=== PATIENT | female | born 1930 | race Caucasian/White ===

== ENCOUNTER 2018-08-24 11:48 | Day surgery (SDC) | payer MEDICARE ==
[~2018-08-24 11:48] MED LIST: ALBU90OI INH; ASPI325 PO; CEPH500 PO; Cleocin HCl300 MG PO; DIAZ5 PO; FURO40 PO; LEVFLO500 PO; LISI5 PO; Lasix20 MG PO; METO100ER PO; POTCHL20ER PO; Simvastatin20 MG PO; WARF2 PO; WARF2.5 PO; ZESTRIL40 MG PO; Zithromax250 MG PO
== END 2018-08-24 22:56 | disposition home or self-care (01) ==
LOC: WOUND 11:48
DX: L97.821 Non-pressure chronic ulcer of other part of left lower leg limited to breakdown of skin (principal); L97.811 Non-pressure chronic ulcer of other part of right lower leg limited to breakdown of skin; I87.2 Venous insufficiency (chronic) (peripheral); I11.0 Hypertensive heart disease with heart failure; I50.9 Heart failure, unspecified; I48.91 Unspecified atrial fibrillation; J44.9 Chronic obstructive pulmonary disease, unspecified; E78.5 Hyperlipidemia, unspecified; Z86.73 Personal history of transient ischemic attack (TIA), and cerebral infarction without residual deficits; Z88.5 Allergy status to narcotic agent; Z87.891 Personal history of nicotine dependence
CPT/HCPCS: G0463

== ENCOUNTER 2018-08-31 10:45 | Day surgery (SDC) | payer MEDICARE, OTHER ==
[~2018-08-31 10:45] MED LIST changes: +METO50ER PO
== END 2018-08-31 22:53 | disposition home or self-care (01) ==
LOC: WOUND 10:45
DX: L97.821 Non-pressure chronic ulcer of other part of left lower leg limited to breakdown of skin (principal); L97.811 Non-pressure chronic ulcer of other part of right lower leg limited to breakdown of skin; I87.2 Venous insufficiency (chronic) (peripheral); I11.0 Hypertensive heart disease with heart failure; I50.9 Heart failure, unspecified; J44.9 Chronic obstructive pulmonary disease, unspecified
CPT/HCPCS: 36415; 85610; G0463

== ENCOUNTER 2018-09-07 13:38 | Day surgery (SDC) | payer MEDICARE | END 2018-09-07 23:11 | disposition home or self-care (01) | LOC: WOUND 13:38 | DX: L97.811 Non-pressure chronic ulcer of other part of right lower leg limited to breakdown of skin (principal); L97.821 Non-pressure chronic ulcer of other part of left lower leg limited to breakdown of skin; I87.2 Venous insufficiency (chronic) (peripheral); I11.0 Hypertensive heart disease with heart failure; I50.9 Heart failure, unspecified; I48.91 Unspecified atrial fibrillation; J44.9 Chronic obstructive pulmonary disease, unspecified; E78.5 Hyperlipidemia, unspecified; Z86.73 Personal history of transient ischemic attack (TIA), and cerebral infarction without residual deficits | CPT/HCPCS: G0463 ==

== ENCOUNTER 2018-09-16 13:32 | Emergency (ER) | payer MEDICARE ==
[~2018-09-16] VITALS: Ht 162.6 cm; Wt 83.9 kg
[2018-09-16 15:36] LABS: BASOPHILS ABSOLUTE AUTO 0.05 K/mm3 (0.00-0.23); BASOPHILS PERCENT AUTO 1 % (0-2); EOSINOPHILS ABSOLUTE AUTO 0.08 K/mm3 (0.00-0.68); EOSINOPHILS PERCENT AUTO 1 % (0-6); Hematocrit 46.2 % (33.0-51.0); Hemoglobin 14.5 g/dL (11.5-16.0); IMMATURE GRAN ABSOLUTE AUTO 0.02 K/mm3 (0.00-0.10); IMMATURE GRAN PERCENT AUTO 0 % (0-1); LYMPHOCYTES ABSOLUTE AUTO 1.97 K/mm3 (0.84-5.20); LYMPHOCYTES PERCENT AUTO 26 % (21-46); MONOCYTES PERCENT AUTO 9 % (4-13); Mean Corpuscular HGB Conc 31.4 g/dL (31.5-36.5); Mean Corpuscular Volume 96 fL (80-100); Mean Platelet Volume 10.6 fL (9.1-12.4); NEUTROPHILS PERCENT AUTO 64 % (41-73); Platelet Count 211 K/mm3 (150-400); RDW Coefficient Variation 14.1 % (11.7-14.2); RDW Standard Deviation 49.5 fL (35.1-46.3); Red Blood Cell Count 4.84 M/mm3 (3.80-5.20); White Blood Cell Count 7.72 K/mm3 (4.00-11.30)
[2018-09-16 16:00] LABS: Alanine Aminotransfer (ALT/SGP 17 U/L (12-78); Albumin, Blood 3.8 g/dL (3.4-5.0); Albumin/Globulin Ratio 0.9 (0.8-1.8); Alk Phos 158 U/L (50-136); Anion Gap 9 mmol/L (6-16); Aspartate Aminotrans (AST/SGOT 20 U/L (12-37); Bilirubin, Total 1.2 mg/dL (0.1-1.0); Blood Urea Nitrogen 23 mg/dL (8-24); Bun/Creatinine Ratio 17.3 (12.0-20.0); CO2, Blood 28 mmol/L (21-32); Calcium, Blood 7.8 mg/dL (8.5-10.1); Chloride, Blood 102 mmol/L (98-108); Creatinine, Blood 1.33 mg/dL (0.40-1.00); Globulin, Blood 4.2 g/dL (2.2-4.0); Glomerular Filtration Rate 40 (60-); Glucose, Blood 93 mg/dL (70-99); Potassium, Blood 3.9 mmol/L (3.5-5.5); Sodium, Blood 139 mmol/L (136-145); Troponin I <0.015 ng/mL (0.000-0.040)
[2018-09-16] MEDS ORDERED: Ultram50 MG PO (16:11)
== END 2018-09-16 16:45 | disposition home or self-care (01) ==
LOC: ER 13:32
PROVIDERS: Emergency Medicine
DX: R07.9 Chest pain, unspecified (principal); M54.9 Dorsalgia, unspecified; I11.0 Hypertensive heart disease with heart failure; I50.9 Heart failure, unspecified; I48.91 Unspecified atrial fibrillation; Z86.73 Personal history of transient ischemic attack (TIA), and cerebral infarction without residual deficits; Z87.891 Personal history of nicotine dependence
CPT/HCPCS: 36415; 71046; 80053; 83880; 84484; 85025; 93005; 93010; 99284-25

== ENCOUNTER 2018-09-22 03:30 | Inpatient (IN) | payer MEDICARE ==
[~2018-09-22] VITALS: Ht 162.6 cm; Wt 88.2 kg
[~2018-09-22 03:30] MED LIST changes: +Ultram50 MG PO
[2018-09-22 03:53] LABS: BASOPHILS ABSOLUTE AUTO 0.03 K/mm3 (0.00-0.23); BASOPHILS PERCENT AUTO 0 % (0-2); EOSINOPHILS ABSOLUTE AUTO 0.03 K/mm3 (0.00-0.68); EOSINOPHILS PERCENT AUTO 0 % (0-6); Hematocrit 42.2 % (33.0-51.0); Hemoglobin 13.8 g/dL (11.5-16.0); IMMATURE GRAN ABSOLUTE AUTO 0.04 K/mm3 (0.00-0.10); IMMATURE GRAN PERCENT AUTO 0 % (0-1); LYMPHOCYTES PERCENT AUTO 10 % (21-46); MONOCYTES ABSOLUTE AUTO 1.08 K/mm3 (0.16-1.47); MONOCYTES PERCENT AUTO 9 % (4-13); Mean Corpuscular HGB 30.1 pg (26.0-34.0); Mean Corpuscular HGB Conc 32.7 g/dL (31.5-36.5); Mean Platelet Volume 10.8 fL (9.1-12.4); NEUTROPHILS ABSOLUTE AUTO 10.07 K/mm3 (1.96-9.15); NEUTROPHILS PERCENT AUTO 80 % (41-73); Platelet Count 240 K/mm3 (150-400); RDW Coefficient Variation 14.2 % (11.7-14.2); RDW Standard Deviation 48.1 fL (35.1-46.3); Red Blood Cell Count 4.58 M/mm3 (3.80-5.20); White Blood Cell Count 12.55 K/mm3 (4.00-11.30)
[2018-09-22 04:01] LABS: Mean Corpuscular Volume 92 fL (80-100)
[2018-09-22 04:08] LABS: Alanine Aminotransfer (ALT/SGP 17 U/L (12-78); Albumin, Blood 3.4 g/dL (3.4-5.0); Albumin/Globulin Ratio 0.9 (0.8-1.8); Alk Phos 137 U/L (50-136); Anion Gap 12 mmol/L (6-16); Aspartate Aminotrans (AST/SGOT 27 U/L (12-37); Bilirubin, Total 0.9 mg/dL (0.1-1.0); Blood Urea Nitrogen 64 mg/dL (8-24); Bun/Creatinine Ratio 22.2 (12.0-20.0); CO2, Blood 21 mmol/L (21-32); Calcium, Blood 7.7 mg/dL (8.5-10.1); Chloride, Blood 100 mmol/L (98-108); Creatinine, Blood 2.88 mg/dL (0.40-1.00); Globulin, Blood 3.6 g/dL (2.2-4.0); Glomerular Filtration Rate 16 (60-); Glucose, Blood 97 mg/dL (70-99); Potassium, Blood 4.7 mmol/L (3.5-5.5); Sodium, Blood 133 mmol/L (136-145); Troponin I <0.015 ng/mL (0.000-0.040)
[2018-09-22 04:14] LABS: Prothrombin Time Results >90.0 Sec (9.7-11.5)
[2018-09-22 04:16] LABS: International Normalized Ratio No Calc
[2018-09-22] MEDS ORDERED: PRESERVISION A1 EACH PO (09:06)
--- NOTE | 2018-09-22 17:07 | NUR ---
PT ARRIVED TO THE MEDICAL FLOOR AROUND 0930 TODAY VIA STRETCHER, A/OX3, PLEASANT AND COOPERATIVE THE PT WAS ORIENTED TO THE ROOM LAYOUT AND CALL SYSTEM, THE PT APPEARS TO BE BREATHING EASILY ON ROOM, THE PT REPORTED CHRONIC BACK PAIN AND LE CELLULITIS AND WAS MEDICATED FOR PAIN X2 SO FAR TODAY, THE PT DECLINED THE IV PAIN MEDICATION THAT WAS OFFERED, PICTURES OF SMALL ABRASIONS ON THE PT LE'S WERE TAKEN AND WOUND CARE WAS GIVEN, THE PT WAS GIVEN 2 UNITS OF FFP'S AND TOLERATED THE TRANSFUSION WELL, THE PT WORKED WITH PHYSICAL THERAPY AND WAS UP INTO THE CHAIR TODAY, THE PT IS A MINIMAL ASSIST UP TO THE BATHROOM, CALL LIGHT IN REACH WILL CONTINUE TO MONITOR AND ASSESS FOR CHANGES
--- NOTE | 2018-09-23 04:46 | NUR ---
LAB CALLED THEY HAD TO D/C THE U/A WRITTEN FOR THE ER, ASKED ME TO RE-ENTER THE ORDER AND SEND A SAMPLE. COMPLETED PER PREVIOUS WRITTEN ORDER.
[2018-09-23 04:55] LABS: BASOPHILS ABSOLUTE AUTO 0.02 K/mm3 (0.00-0.23); BASOPHILS PERCENT AUTO 0 % (0-2); EOSINOPHILS ABSOLUTE AUTO 0.04 K/mm3 (0.00-0.68); EOSINOPHILS PERCENT AUTO 0 % (0-6); Hematocrit 38.1 % (33.0-51.0); Hemoglobin 12.6 g/dL (11.5-16.0); IMMATURE GRAN ABSOLUTE AUTO 0.04 K/mm3 (0.00-0.10); IMMATURE GRAN PERCENT AUTO 0 % (0-1); LYMPHOCYTES ABSOLUTE AUTO 0.78 K/mm3 (0.84-5.20); LYMPHOCYTES PERCENT AUTO 7 % (21-46); MONOCYTES ABSOLUTE AUTO 0.86 K/mm3 (0.16-1.47); MONOCYTES PERCENT AUTO 8 % (4-13); Mean Corpuscular HGB 30.3 pg (26.0-34.0); Mean Corpuscular HGB Conc 33.1 g/dL (31.5-36.5); Mean Corpuscular Volume 92 fL (80-100); NEUTROPHILS ABSOLUTE AUTO 9.72 K/mm3 (1.96-9.15); NEUTROPHILS PERCENT AUTO 85 % (41-73); Platelet Count 191 K/mm3 (150-400); RDW Coefficient Variation 14.3 % (11.7-14.2); RDW Standard Deviation 48.2 fL (35.1-46.3); Red Blood Cell Count 4.16 M/mm3 (3.80-5.20); White Blood Cell Count 11.46 K/mm3 (4.00-11.30)
[2018-09-23 05:03] LABS: Source, Urine Voided
[2018-09-23 05:11] LABS: International Normalized Ratio 1.53; Prothrombin Time Results 15.6 Sec (9.7-11.5)
[2018-09-23 05:18] LABS: Appearance, Urine Clear (Clear); Bilirubin, Urine Neg (Neg); Blood, Urine 4+ (Neg); Color, Urine Yellow (P-Yellow); Glucose Qualitative, Urine Neg (Neg); Ketones, Urine Neg (Neg); Leukocyte Esterase, Urine 3+ (Neg); Nitrite, Urine Neg (Neg); Protein, Urine 2+ (Neg); Specific Gravity, Urine 1.015 (1.003-1.022); Urobilinogen, Urine NORM (Normal)
[2018-09-23 05:24] LABS: Albumin, Blood 3.2 g/dL (3.4-5.0); Albumin/Globulin Ratio 0.9 (0.8-1.8); Bilirubin, Total 1.1 mg/dL (0.1-1.0); Bun/Creatinine Ratio 22.8 (12.0-20.0); Calcium, Blood 7.1 mg/dL (8.5-10.1); Creatinine, Blood 3.03 mg/dL (0.40-1.00); Globulin, Blood 3.4 g/dL (2.2-4.0); Potassium, Blood 3.7 mmol/L (3.5-5.5); Total Protein, Blood 6.6 g/dL (6.4-8.2)
[2018-09-23 05:43] LABS: White Blood Cells, Urine 50-100 /hpf (0-5)
[2018-09-23 05:44] LABS: Red Blood Cells, Urine 50-100 /hpf (0-2); Squamous Epithelial Cells Mod /hpf (Few)
[2018-09-23 05:45] LABS: Bacteria Few /hpf; Transitional Epithelial Cells Few /hpf (0-Rare)
--- NOTE | 2018-09-23 11:04 | NUR ---
Upon receiving a patient referral requesting a visit from spiritual care, I enter patient's room and find patient is sitting on a chair and sleeping. She easily awakens to the sound of her name. Patient expresses irritation at the constant interuptions when all she wants to do is sleep. I ask patient a few questions focused on her belief system and say a quick prayer so patient can go back to sleeping. Patient shows no signs of affect from visit.
[2018-09-23 11:30] LABS: C DIFFICILE BY DNA AMP Positive (Negative)
--- NOTE | 2018-09-23 18:51 | NUR ---
SUMMARY- PT ALERT AND ORIENTED- STATES THERES NO PURPOSE FOR HER ANYMORE. OFFEERED ENCOURAGEMENT AND REASSURANCE. PT UP TO BSC SBA. TESTED POS FOR C-DIFF- MULT LOOSE STOOLS TODAY. NOTIFIED DR MARINO- VANCOMYCIN ORAL STARTED THIS PM. PT TOLERATING FOOD AND FLUIDS. MEDICATED WITH ULTRAM AM FOR BACK PAIN WITH RELEIF. VOIDING. NEIGHBOR HERE TO VISIT TODAY. SON AND DAUGHTER LIVE OUT OF STATE.
[2018-09-24 05:14] LABS: BASOPHILS ABSOLUTE AUTO 0.02 K/mm3 (0.00-0.23); BASOPHILS PERCENT AUTO 0 % (0-2); EOSINOPHILS ABSOLUTE AUTO 0.01 K/mm3 (0.00-0.68); EOSINOPHILS PERCENT AUTO 0 % (0-6); Hematocrit 35.9 % (33.0-51.0); IMMATURE GRAN ABSOLUTE AUTO 0.03 K/mm3 (0.00-0.10); IMMATURE GRAN PERCENT AUTO 0 % (0-1); LYMPHOCYTES ABSOLUTE AUTO 0.48 K/mm3 (0.84-5.20); LYMPHOCYTES PERCENT AUTO 5 % (21-46); MONOCYTES ABSOLUTE AUTO 0.87 K/mm3 (0.16-1.47); MONOCYTES PERCENT AUTO 8 % (4-13); Mean Corpuscular HGB 30.2 pg (26.0-34.0); Mean Corpuscular HGB Conc 33.4 g/dL (31.5-36.5); Mean Corpuscular Volume 90 fL (80-100); Mean Platelet Volume 10.8 fL (9.1-12.4); NEUTROPHILS ABSOLUTE AUTO 9.02 K/mm3 (1.96-9.15); NEUTROPHILS PERCENT AUTO 87 % (41-73); Platelet Count 189 K/mm3 (150-400); RDW Coefficient Variation 14.2 % (11.7-14.2); RDW Standard Deviation 46.5 fL (35.1-46.3); Red Blood Cell Count 3.98 M/mm3 (3.80-5.20); White Blood Cell Count 10.43 K/mm3 (4.00-11.30)
[2018-09-24 05:37] LABS: Albumin, Blood 2.9 g/dL (3.4-5.0); Albumin/Globulin Ratio 0.9 (0.8-1.8); Bilirubin, Total 1.1 mg/dL (0.1-1.0); Bun/Creatinine Ratio 25.3 (12.0-20.0); Calcium, Blood 7.4 mg/dL (8.5-10.1); Creatinine, Blood 2.37 mg/dL (0.40-1.00); Globulin, Blood 3.3 g/dL (2.2-4.0); Potassium, Blood 3.3 mmol/L (3.5-5.5); Total Protein, Blood 6.2 g/dL (6.4-8.2)
--- NOTE | 2018-09-24 07:40 | NUR ---
NOC SHIFT SUMMARY PT IS COOPERATIVE WITH CARE. VERY ANXIOUS AT TIMES. ON TELE SHOWING AFIB FROM 90'S TO 116 AT REST. HER HEART RATE DOES INCREASE UPT TO THE 140'S WITH ACTIVITY BUT SLOWES DOWN AGAIN WITH REST. POSITIVE FOR CDIFF AND HAS HAD SEVERAL BM'S THIS NIGHT. BLADDER SCAN SHOWED MIMIMAL RETENTION, SEE SCAN RESULTS. PT APPEARS IN NO ACUTE DISTRESS. REPORT TO ONCOMING RN.
--- NOTE | 2018-09-24 18:00 | NUR ---
SHIFT SUMMARY: NO ACUTE CHANGES TO REPORT THIS SHIFT. PT A&O; CALM AND COOPERATIVE WITH CARE. NO C/O PAIN THIS SHIFT. PHYSICAL THERAPY EVAL & TREAT THIS SHIFT. TELE IN PLACE; CHRONIC A-FIB. BLADDER SCAN Q6; PATIENT VOIDING SPONTANEOUSLY. IV & PO ABX CONTINUING. WCTM.
[2018-09-25 04:56] LABS: BASOPHILS ABSOLUTE AUTO 0.03 K/mm3 (0.00-0.23); BASOPHILS PERCENT AUTO 0 % (0-2); EOSINOPHILS ABSOLUTE AUTO 0.11 K/mm3 (0.00-0.68); EOSINOPHILS PERCENT AUTO 1 % (0-6); Hematocrit 36.9 % (33.0-51.0); Hemoglobin 11.3 g/dL (11.5-16.0); IMMATURE GRAN ABSOLUTE AUTO 0.02 K/mm3 (0.00-0.10); IMMATURE GRAN PERCENT AUTO 0 % (0-1); LYMPHOCYTES ABSOLUTE AUTO 1.13 K/mm3 (0.84-5.20); LYMPHOCYTES PERCENT AUTO 15 % (21-46); MONOCYTES ABSOLUTE AUTO 0.93 K/mm3 (0.16-1.47); MONOCYTES PERCENT AUTO 12 % (4-13); Mean Corpuscular HGB Conc 30.6 g/dL (31.5-36.5); Mean Platelet Volume 10.5 fL (9.1-12.4); NEUTROPHILS PERCENT AUTO 72 % (41-73); Platelet Count 176 K/mm3 (150-400); RDW Coefficient Variation 14.6 % (11.7-14.2); RDW Standard Deviation 51.8 fL (35.1-46.3); Red Blood Cell Count 3.77 M/mm3 (3.80-5.20); White Blood Cell Count 7.82 K/mm3 (4.00-11.30)
[2018-09-25 04:58] LABS: Mean Corpuscular Volume 98 fL (80-100)
--- NOTE | 2018-09-25 04:58 | NUR ---
NOC SHIFT SUMMARY PT IS COOPERATIVE WITH CARE. SHE IS ANXIOUS AND CONCERNED FOR THE FUTURE SHE WAS LIVING INDEPENDENTLY PRIOR TO ADMISSION AND DOES NOT THINK SHE CAN MANAGE ON HER OWN. LAST TELE CHECK SHOWED AFIB RATE 118 PER CORRECTIVE THERAPIST. PT HAS BEEN TREATED FOR PAIN AND REPOSTITIONED WITH LOTS OF PILLOWS. HER DAUGHTER CALLED AND PT ASKED ME TO SPEAK WITH HER. SHE MAY BE FLYING IN TO SEE PT IN THE NEXT FEW DAYS. VSS. PT APPEARS IN NO ACUTE DISTRESS AT THIS TIME. WILL CONTINUE TO MONITOR.
[2018-09-25 05:13] LABS: International Normalized Ratio 1.57
[2018-09-25 05:35] LABS: Albumin, Blood 2.6 g/dL (3.4-5.0); Albumin/Globulin Ratio 0.9 (0.8-1.8); Bilirubin, Total 1.1 mg/dL (0.1-1.0); Bun/Creatinine Ratio 26.8 (12.0-20.0); Calcium, Blood 7.4 mg/dL (8.5-10.1); Creatinine, Blood 1.79 mg/dL (0.40-1.00); Potassium, Blood 2.8 mmol/L (3.5-5.5); Total Protein, Blood 5.6 g/dL (6.4-8.2)
--- NOTE | 2018-09-25 19:06 | NUR ---
SHIFT SUMMARY: NO ACUTE CHANGES TO REPORT THIS SHIFT. PT A&O; CALM AND COOPERATIVE WITH CARE. NO C/O PAIN THIS SHIFT. IV NS + KcL 20 MeQ @ 75 X1 BAG STARTED THIS SHIFT. PT C DIFF POSITIVE; IV & PO ABX CONTINUING. REPORT GIVEN TO ONCOMING RN.
[2018-09-26 05:01] LABS: BASOPHILS ABSOLUTE AUTO 0.04 K/mm3 (0.00-0.23); BASOPHILS PERCENT AUTO 1 % (0-2); EOSINOPHILS ABSOLUTE AUTO 0.14 K/mm3 (0.00-0.68); EOSINOPHILS PERCENT AUTO 2 % (0-6); Hematocrit 39.1 % (33.0-51.0); Hemoglobin 12.6 g/dL (11.5-16.0); IMMATURE GRAN ABSOLUTE AUTO 0.03 K/mm3 (0.00-0.10); IMMATURE GRAN PERCENT AUTO 0 % (0-1); LYMPHOCYTES ABSOLUTE AUTO 1.22 K/mm3 (0.84-5.20); LYMPHOCYTES PERCENT AUTO 15 % (21-46); MONOCYTES ABSOLUTE AUTO 0.93 K/mm3 (0.16-1.47); MONOCYTES PERCENT AUTO 11 % (4-13); Mean Corpuscular HGB 30.1 pg (26.0-34.0); Mean Corpuscular HGB Conc 32.2 g/dL (31.5-36.5); Mean Platelet Volume 10.6 fL (9.1-12.4); NEUTROPHILS ABSOLUTE AUTO 5.85 K/mm3 (1.96-9.15); NEUTROPHILS PERCENT AUTO 71 % (41-73); Platelet Count 217 K/mm3 (150-400); RDW Coefficient Variation 14.6 % (11.7-14.2); RDW Standard Deviation 49.6 fL (35.1-46.3); Red Blood Cell Count 4.18 M/mm3 (3.80-5.20); White Blood Cell Count 8.21 K/mm3 (4.00-11.30)
[2018-09-26 05:02] LABS: Mean Corpuscular Volume 94 fL (80-100)
[2018-09-26 05:14] LABS: International Normalized Ratio 1.63; Prothrombin Time Results 16.5 Sec (9.7-11.5)
[2018-09-26 05:26] LABS: Magnesium, Blood 2.1 mg/dL (1.6-2.4)
[2018-09-26 05:28] LABS: Albumin, Blood 2.9 g/dL (3.4-5.0); Albumin/Globulin Ratio 0.9 (0.8-1.8); Bilirubin, Total 1.2 mg/dL (0.1-1.0); Bun/Creatinine Ratio 23.7 (12.0-20.0); Calcium, Blood 7.7 mg/dL (8.5-10.1); Creatinine, Blood 1.52 mg/dL (0.40-1.00); Globulin, Blood 3.3 g/dL (2.2-4.0); Potassium, Blood 3.4 mmol/L (3.5-5.5); Total Protein, Blood 6.2 g/dL (6.4-8.2)
--- NOTE | 2018-09-26 07:44 | NUR ---
NOC SHIFT SUMMARY PT IS PLEASANT AND COOPERATIVE WITH CARE THIS NIGHT. SHE DOES SEEM TO BE MORE CONFUSED THIS NIGHT THAN LAST. COMPLAINS OF MUSCLE SPASMS IN HER LOW BACK AREA. OBTAINED ORDER FROM HOSPITALIST FOR FLEXARIL. LATER IN THE NIGHT SHE DESCRIBED THE SPASMS IN HER R CAPULAR AREA OF HER SHOULDER AND SAID THAT WAS WHERE IT HAD BEEN THE WHOLE TIME. SHE STATES SHE HAS HAS THIS SPASM PAIN SINCE SHE WAS ADMITTED TO THE HOSPITAL. SHE HAD A SMALL AMOUNT OF BLOOD IN HER ATTENDS WELL. HER LEFT HENDRICKSON AND ANKLE AREA APPEAR RED AND ARE VERY PAINFUL EVEN TO LIGHT TOUCH. VSS. THIS MORNING HER SOCK CAME OFF HALF WAY IN BED. SHE GOT OUT OF BED AND WAS TRYING TO FIND ME IN THE HALLWAY TO REPLACE THE SOCK. I GENTLY GUIDED HER BACK TO BED AND DID SO. JUST AFTER SHIFT CHANGE PT PULLED OUT HER IV IN HER R EJ. DAY NURSE IS AWARE.
--- NOTE | 2018-09-26 13:37 | NUR ---
NOTIFIED DR. MARINO PT'S BLE RED, SWOLLEN AND WEEPING A LITTLE. NOTIFIED DR. MARINO THE L CALF MORE SWOLLEN/RED. NOTIFIED DR. MARINO INDUSTRIAL TECHNOLOGY EDUCATION TEACHER RN REPORTS SMALL AMOUNT OF BLOOD IN ATTENDS LAST NIGHT. NO BLOOD SEEN IN STOOL/URINE OR ATTENDS SO FAR THIS SHIFT. NOTIFIED DR. MARINO PT PULLED IV AND THE ONLY IV MED PT HAS ORDERED IS ZOFRAN. DR. MARINO SAID OK TO PUT IN NO IV ACCESS NEEDED ORDER. NO OTHER NEW ORDERS AT THIS TIME.
--- NOTE | 2018-09-26 16:56 | NUR ---
SHIFT SUMMARY- AXO X3. INTERMITTENT CONFUSION. PT PULLED IV THIS AM. DR. MARINO NOTIFIED. SEE PREVIOUS NOTE. PT DOES NOT USE CALL LIGHT. CHAIR ALARM ON. DENIES SOB. DYSPNEA UPON EXERTION. 97% ON RA. DENIES N/V. 1 ASSIST WITH FWW TO BSC/CHAIR. NO OTHER SIGNIFICANT CHANGES THIS SHIFT.
--- NOTE | 2018-09-27 05:11 | NUR ---
SHIFT SUMMARY PT IS ALERT AND ORIENTED TO SELF. PATIENT USES BSC WITH SBA. PATIENT COMPLAINED OF BACK PAIN WHILE UP ON BSC, WHEN PATIENT GOT BACK INTO BED SHE REPORTED TO THE MANAGEMENT TRAINEE PROGRAM STORES SHE WAS VERY SOB. VITALS OBTAINED AND O2 SATS WERE DECREASED TO MID 80'S AND RR MID 30'S. CALLED RESPIRATORY TO COME SEE PT. PT HAS HISTORY OF A-FIB, CHF, AND CKD. PATIENT TAKES LASIX AT HOME NORMALLY. CALLED HOSPITALIST AND INFORMED HIM OF HER BP, HR, SATS, AND RR. HOSPITALIST STATES HE WOULD LIKE TO HOLD OFF ON DIURETICS UNTIL RENAL LABS COME BACK IN THE AM. PATIENT'S VITALS RECHECKED LATER AND ARE BETTER. O2 LEVELS IN HIGH 90'S. PATIENT GETS UP FREQUENTLY TO URINATE. HAD ONE LOOSE BM THROUGHOUT THE NIGHT. NO OTHER CHANGES NOTED THROUGHOUT THE NIGHT.
[2018-09-27 05:19] LABS: International Normalized Ratio 1.97; Prothrombin Time Results 19.6 Sec (9.7-11.5)
--- NOTE | 2018-09-27 17:52 | NUR ---
SUMMARY PT SITTING UP IN BED EATING DINNER, DAUGHTER IS VISITING, PT HAS BEEN PLEASANT AND COOPERATIVE WITH CARE, CONFUSED AT TIMES, HAS WORKED WITH PT/OT, HAS BEEN UP IN THE CHAIR, NO COMPLAINTS, VSS, NO ACUTE CHANGES, WILL CONT TO MONITOR
[2018-09-28 05:37] LABS: BASOPHILS ABSOLUTE AUTO 0.02 K/mm3 (0.00-0.23); BASOPHILS PERCENT AUTO 0 % (0-2); EOSINOPHILS ABSOLUTE AUTO 0.14 K/mm3 (0.00-0.68); EOSINOPHILS PERCENT AUTO 2 % (0-6); Hematocrit 41.2 % (33.0-51.0); Hemoglobin 13.1 g/dL (11.5-16.0); IMMATURE GRAN ABSOLUTE AUTO 0.04 K/mm3 (0.00-0.10); IMMATURE GRAN PERCENT AUTO 1 % (0-1); LYMPHOCYTES ABSOLUTE AUTO 1.42 K/mm3 (0.84-5.20); LYMPHOCYTES PERCENT AUTO 18 % (21-46); MONOCYTES ABSOLUTE AUTO 0.91 K/mm3 (0.16-1.47); MONOCYTES PERCENT AUTO 11 % (4-13); Mean Corpuscular HGB 29.9 pg (26.0-34.0); Mean Corpuscular HGB Conc 31.8 g/dL (31.5-36.5); Mean Corpuscular Volume 94 fL (80-100); Mean Platelet Volume 10.9 fL (9.1-12.4); NEUTROPHILS ABSOLUTE AUTO 5.46 K/mm3 (1.96-9.15); NEUTROPHILS PERCENT AUTO 68 % (41-73); Platelet Count 210 K/mm3 (150-400); RDW Coefficient Variation 14.9 % (11.7-14.2); RDW Standard Deviation 51.5 fL (35.1-46.3); Red Blood Cell Count 4.38 M/mm3 (3.80-5.20); White Blood Cell Count 7.99 K/mm3 (4.00-11.30)
[2018-09-28 05:57] LABS: International Normalized Ratio 3.24; Prothrombin Time Results 30.9 Sec (9.7-11.5)
[2018-09-28 05:58] LABS: Albumin, Blood 3.1 g/dL (3.4-5.0); Albumin/Globulin Ratio 0.9 (0.8-1.8); Bilirubin, Total 1.4 mg/dL (0.1-1.0); Bun/Creatinine Ratio 22.1 (12.0-20.0); Calcium, Blood 8.2 mg/dL (8.5-10.1); Creatinine, Blood 1.13 mg/dL (0.40-1.00); Globulin, Blood 3.6 g/dL (2.2-4.0); Potassium, Blood 3.9 mmol/L (3.5-5.5); Total Protein, Blood 6.7 g/dL (6.4-8.2)
--- NOTE | 2018-09-28 07:07 | NUR ---
alert to self and location, but forgets, call light in reach, rm air, no IV, pain not well controlled but poor historian/business reporter hard to asertain level of pain, bsr given to returning day shift
--- NOTE | 2018-09-28 18:09 | NUR ---
SUMMARY PT SITTING UP IN THE CHAIR AT THE BEDSIDE EATING DINNER, PT HAS BEEN PLEASANT AND COOPERATIVE WITH CARE T/O THE DAY, FAMILY HAS BEEN IN TO VISIT, STAFF FROM [facility] [place], HAVE BEEN IN TO EVALUATE THE PT, PLAN WILL BE TO GET THE PT THERE POSSIBLY WEDNESDAY OR WEDNESDAY, PT CONT TO HAVE LOOSE STOOL, VSS, NO ACUTE CHANGES, WILL CONT TO MONITOR
[2018-09-29 06:26] LABS: Bun/Creatinine Ratio 22.4 (12.0-20.0); Calcium, Blood 8.1 mg/dL (8.5-10.1); Creatinine, Blood 1.16 mg/dL (0.40-1.00); Potassium, Blood 4.1 mmol/L (3.5-5.5)
[2018-09-29 06:30] LABS: Prothrombin Time Results 37.4 Sec (9.7-11.5)
--- NOTE | 2018-09-29 06:36 | NUR ---
SHIFT SUMMARY: PATIENT HAS A ROUGH START SHE WAS UP AND DOWN WHICH CAUSED HER SOB TO EXACERBATE. SHE DENIED ANY CHEST PAIN OR OTHER ACUTE CHANGES THIS SHIFT. SHE FELL ASLEEP AROUND MIDNIGHT, AND SLEPT THROUGHOUT THE NIGHT. MEDS GIVEN PER EMAR, VS REMAINED STABLE, WILL REPORT TO DAY SHIFT RN.
--- NOTE | 2018-09-29 19:23 | NUR ---
SHIFT SUMMARY- PT HAS HAD NO ACUTE CHANGES T/O THE SHIFT, STOOL IS STILL LOOSE. OCCASSIONAL INCONTINENCE, ATTENDS IN PLACE. PT IS A 1PA TO THE BSC. PT HAD A C/O BACK PAIN TODAY MEDICATED PER EMAR AND IT RESOLVED. PT SITTING UP IN THE RECLINER AT THIS TIME, CALL LIGHT IN REACH, PT CALLS APPROPRIATELY.
[2018-09-30 05:44] LABS: International Normalized Ratio 3.21; Prothrombin Time Results 30.6 Sec (9.7-11.5)
[2018-09-30 05:52] LABS: Bun/Creatinine Ratio 21.7 (12.0-20.0); Creatinine, Blood 1.06 mg/dL (0.40-1.00); Potassium, Blood 3.9 mmol/L (3.5-5.5)
--- NOTE | 2018-09-30 07:29 | NUR ---
09/30/18 0615 FIAR NIGHT WITH FREQUENT TRIPS TO BSC WITH HELP FROM STAFF. PT EMOTIONAL AT TIMES WHEN EXPRESSING HER NEEDS. REASSURED AND COMFORTED. VITALS REMAIN STABLE. BLADDER SCANNED ONCE AFTER VOIDING 100 ML. BLADDER SCAN WAS ZERO.
--- NOTE | 2018-09-30 16:51 | NUR ---
SHIFT SUMMARY- PT HAS HAD INCREASED DIFFICULTY OF SWALLOWING, CALLED DR TROTTER RECIEVED ORDER FOR SWALLOW EVAL. PT NOW HAS ASP PRECAUTIONS. RECIEVED ORDER FOR CHEST XRAY. XRAY NOT YET COMPLETED. PT HAS BEEN HAVING GREATER DIFFICULTY BREATHING WITH ACTIVITY, SHE BEGINS COUGHING AND CAN'T CATCH HER BREATH. TODAY SHE HAD DIFFICULTY TAKING HER MORNING MEDICATIONS, SEEMS LIKE SHE MAY BE ASPIRATING A LITTLE. NEW ORDER FOR MEDS WHOLE IN APPLESAUCE PER SPEECH THERAPY. PT CAN HAVE NO STRAWS AND NECTAR THICK LIQUIDS WELL MECH SOFT GROUND MEAT FOOD. WILL PASS ON TO FISH ICER IN REPORT. PT CURRENTLY IN BED WITH HER CALL LIGHT IN REACH. UP IN CHAIR FOR KELLY.
[2018-10-01 05:50] LABS: International Normalized Ratio 3.15; Prothrombin Time Results 30.1 Sec (9.7-11.5)
[2018-10-01 06:01] LABS: Bun/Creatinine Ratio 20.5 (12.0-20.0); Calcium, Blood 7.9 mg/dL (8.5-10.1); Creatinine, Blood 1.12 mg/dL (0.40-1.00)
--- NOTE | 2018-10-01 06:25 | NUR ---
SHIFT SUMMARY PT AWAKE ON/OFF T/O NIGHT. AOX3, FOLLOWS DIRECTIONS, ANSWERS YES/NO QUESTIONS APPROPRIATELY. STATES "SOMETIMES I SEE THINGS THAT AREN'T REALLY THERE." NO HALLUCINATIONS NOTED WHEN PT ASSESSED. DENIES N/V. REPORTS 9/10 UPPER ABD PAIN WHICH RAIDIATES UNDER L BREAST & COMES/GOES, MEDICATED 1X W/TYLENOL & 1X W/ULTRAM PER ORDERS, REPORTS PAIN RELIEF BUT STILL GRIMACES/CLENCHES ABD & MOANS FREQUENTLY. REPORTS FEELING SOB ALOT, EVEN AFTER BREATHING TX, SPO2 >90% ON RA, HAS SHALLOW LABORED RESPIRATIONS. BLE HAVE PITTING EDEMA W/SOME SMALL SKIN TEARS & MULTIPLE BRUISES NOTED SCATTERED T/O BODY. CALL LIGHT IN REACH & I WILL CONTINUE TO MONITOR.
--- NOTE | 2018-10-01 16:33 | NUR ---
SHIFT SUMMARY- PT A/O TO PERSON AND PLACE. PT REPORTS 4/10 PAIN TO ABD, NO OTHER COMPLAINTS. LS CLEAR WITH OCC EXP WHEEZE, SOB WITH EXERTION BUT RECOVERS AT REST AFTER A FEW MINUTES, ON RA. 1+ BLE EDEMA. PT WITH 2 LOOSE BM'S TODAY. DIURETIC CHANGED TO TORSEMIDE. PT AMBULATES IN ROOM TO BATHROOM WITH SBA AND FWW. PT REPORTS SOMEONE TALKING TO HER AT TIMES IN HER ROOM, NO ONE PRESENT DURING THESE TIMES. NO OTHER ACUTE CHANGES THIS SHIFT.
--- NOTE | 2018-10-02 04:03 | NUR ---
SHIFT SUMMARY PT HAS BEEN AWAKE FOR MOST OF THE NIGHT WITH THE LIGHT ON IN HER ROOM. SHE HAS INTERMITTENT PERIODS OF CONFUSION T/O THE SHIFT, ASKING WHERE HER DAUGHTER IS AND SO FOURTH. SHE AT ONE POINT ASKED THAT WE MAKE COPIES OF A CARD THAT CONTAINED HER HOME INFORMATION. SHE THOUGHT SHE WAS HERE IN PREPERATION FOR HER . PT FORGOT WHERE SHE WAS AND THAT SHE WAS IN THE HOSPITAL. PT REDIRECTED. BED ALARM IN PLACE FOR SAFETY. PT REPOSITIONED T/O SHIFT. UP WITH FWW TO THE BATHROOM. ORAL VANCO FOR CDIFF. PT DENIES PAIN. OVERALL NO ACUTE CHANGES. WILL CONTINUE TO MONITOR AND REPORT TO ONCOMING RN.
[2018-10-02 05:24] LABS: Bun/Creatinine Ratio 19.8 (12.0-20.0); Creatinine, Blood 1.11 mg/dL (0.40-1.00); International Normalized Ratio 2.26; Potassium, Blood 3.6 mmol/L (3.5-5.5); Prothrombin Time Results 22.2 Sec (9.7-11.5)
--- NOTE | 2018-10-02 08:33 | NUR ---
SPOKE WITH DR TROTTER REGARDING PT SHOWING TACHY IN THE 110'S-120'S AT TIMES, MANUAL PULSE IN THE 80'S, PT WITH KNOWN HX AFIB. PER DR TROTTER HE IS NOT CONCERNED WITH HR 120'S OR LESS. SPOKE WITH DR TROTTER ALSO REGARDING PROBIOTIC FOR PT WELL SOMETHING FOR COUGH. PT HAS A HARSH COUGH THAT EXACERBATES IN SOB. PT WAS OFFERED A BREATHING TX THIS AM BUT STATES SHE DID NOT WANT ONE BECAUSE THEY MAKE HER WORSE.
--- NOTE | 2018-10-02 16:32 | NUR ---
SHIFT SUMMARY- PT A/OX2, PERSON AND PLACE. SBA UP TO BATHROOM WITH FWW. PT DENIES ANY COMPLAINTS T/O THE DAY. LS DIMINISHED WITH OCC EXP WHEEZE. HARSH COUGH NOTED, PT STARTED ON PRN COUGH MED THAT HAS HELPED. SOB WITH EXERTION. HR IRREG. 1+ BLE EDEMA. DR TROTTER SPOKE TO DAUGHTERS REGARDING HOSPICE, SON TO BE IN TOWN TOMORROW AND WILL DISCUSS FURHTER. PLAN TO D/C TO [facility] UPON D/C. NO OTHER ACUTE CHANGES THIS SHIFT.
--- NOTE | 2018-10-02 16:56 | NUR ---
Clinical Visit: Spoke to Margarito before I went to see pt. She reports that she doesn't know if the pt knows that her family has been discussing hospice or not. Reviewed strategies to speak to pt about end of life care; discussed that it may be better to have family present for speaking to her. Pt is alert, oriented. She is anxious about moving to a new place. She is worried about her family, as they live out of town. Her son will be here tomorrow, she is looking forward to this. Her son Jaret is her designated healthcare decision maker in the case that she is unable to make her own choices. He is her oldest child. She has two daughters, that are here today but are shopping for items she needs. She states that they are attentive and loving. Pt has reported pain, "but not much." She reports moderate to severe anxiety related to her changes in life. She does report some ruminating of these issues, but declines to have medication as she does not like pill burden. She is able to speak in full sentences, occasionally having to catch her breath. She reports her shortness of breath gets worse with activity and movement. Follow up with Margarito. She will notify palliative if daughters come.
--- NOTE | 2018-10-02 18:00 | NUR ---
Clinical Visit; Pt's family is present. Daughters Conchita and Priya are wanting to discuss equipment and discharge plans. Reviewed equipment needs. They have asked Dr. Lee for an extra day to put things in place. Plans have suddenly changed from discharging to [facility] to discharging to home. Apparently pt's son has volunteered to be at her house and take his work with him to work from her home close to [place]. He does live out of state and has a family there. Conchita and Marilia do not know how this will work, but they have talked to [facility] and they have said that if things to not work out at home, the pt can be moved in at a later time. Conchita followed me out into the hallway. Discussed hospice. Reviewed service, equipment included, can revoke services at anytime, benefit of nursing visit vs doctor visit, symptom managment, support for family. She believes the patient would be ok with this, but they have not told her that they have been talking about it. Conchita did say that Dr. Lee was clear in his explaination of pt's illness and risk for sudden . Conchita is asking for return call from digital media planner to discuss new plan. Placed manager social referal for reevaluation of needs and further family's plan for the pt. Pt should be included in all conversations, she is alert and oriented, able to make her own choices and wishes known.
[2018-10-03 04:56] LABS: International Normalized Ratio 1.97; Prothrombin Time Results 19.6 Sec (9.7-11.5)
[2018-10-03 04:58] LABS: Calcium, Blood 7.8 mg/dL (8.5-10.1); Creatinine, Blood 1.18 mg/dL (0.40-1.00); Potassium, Blood 3.6 mmol/L (3.5-5.5)
--- NOTE | 2018-10-03 04:59 | NUR ---
SHIFT SUMMARY NO CHANGES THIS SHIFT. PT HAS RESTED T/O THE NIGHT. NO PERIODS OF CONFUSION, AND HAS OVERALL DONE BETTER THIS SHIFT. SBA TO BATHROOM. SOB WITH EXERTION. TOLERATES MEDS WHOLE IN APPLESAUCE. VITALS STABLE. PLAN FOR POSSIBLE D/C WEDNESDAY ON HOSPICE. PALLATIVE CARE CONSULTED. WILL CONTINUE TO MONITOR AND REPORT TO ONCOMING RN.
--- NOTE | 2018-10-03 18:25 | NUR ---
SHIFT SUMMARY PT HAS BEEN SLEEPING A LOT OF THE SHIFT. PT UP TO BSC/CHAIR WITH 1 PERSON ASSIST. PT VERY SHORT OF BREATH WITH ANY EXERTION. PLANS FOR DISCHARGE TOMORROW WITH HOSPICE. NO ACUTE CHANGES THIS SHIFT. CALL LIGHT IN REACH. WILL CONTINUE TO MONITOR AND REPORT TO ONCOMING RN.
--- NOTE | 2018-10-04 00:53 | NUR ---
WAS CALLED INTO THE PATIENTS ROOM BY THE SUPERVISOR PURIFICATION THAT STATED THE PATIENT WAS VERY SHOB AND COMPLAINING OF RIGHT SIDE PAIN. I CHECKED THE PATIENT WHO APPEARED VERY SHOB AND WAS COUGHING. i GAVE THE PATIENT TYLENOL AND COUGH SYRUP PRESCRIBED. THE PATIENT SHOB APPEARED TO WORSEN. I CALLED RESPIRATORY THERAPY WHO CAME AND GAVE THE PATIENT A BREATHING TREATMENT AND PLACED THE PATIENT ON O2 NC. AFTER REPOSITIONING THE PATIENT WE OBSERVED THE PATIENT HAD A BOWEL MOVEMENT. GOT THE PATIENT UP TO THE CHAIR AND CHANGED THE LINENS. PATIENT COMPLAINED OF BEING "LIGHT HEADED" AFTER CLEANING UP THE PATIENT SHE RETURNED TO BED. CHECKED THE PATIENTS VITAL SIGNS: BP 186/85 HR 122 RR 25 SPO2 96% ON 2L NC. PATIENT STATED SHE FELT BETTER AND WAS SLEEPY. WILL CONTINUE TO MONITOR.
--- NOTE | 2018-10-04 02:58 | NUR ---
CHECKED ON PATIENT AND FOUND PATIENT HAD REMOVED O2 NC. CHECKED PATIENTS SPO2 AND SHE WAS 95% ON ROOM AIR. PATIENT STATED SHE DID NOT WANT TO WEAR THE OXYGEN ANYMORE. REMOVED O2. PATIENT COMPLAINED OF BACK DISCOMFORT. OFFERED PATIENT HEATING PAD THAT SHE ACCEPTED. PATIENT HAVING MOMENTS OF CONFUSION BUT IS REDIRECTABLE. WILL CONTINUE TO MONITOR.
[2018-10-04 05:30] LABS: International Normalized Ratio 1.87; Prothrombin Time Results 18.7 Sec (9.7-11.5)
[2018-10-04 05:31] LABS: Bun/Creatinine Ratio 21.1 (12.0-20.0); Calcium, Blood 7.7 mg/dL (8.5-10.1); Creatinine, Blood 1.33 mg/dL (0.40-1.00)
--- NOTE | 2018-10-04 06:05 | NUR ---
SHIFT SUMMARY PATIENT DID NOT SLEEP THE MAJORITY OF THE NIGHT. PATIENT HAD "COUGHING SPELL" (SEE PREVIOUS NURSE NOTE) AND BECAME VERY SHOB AFTER AMBULATING WITH STAFF TO THE BATHROOM. PATIENT GIVEN BREATHING TREATMENT AND PLACED ON 5L NC. (SEE EMAR FOR MEDS GIVEN). PATIENT RECOVERED AFTER APPROX. AN HOUR AND STATED THAT SHE FELT BETTER. 1 EPISODE OF A LARGE INCONTINENT BM. PATIENT ABLE TO GET UP TO CHAIR TO GET CLEANED UP. PATIENT HAD SMALL EPISODE OF CONFUSION BUT WAS REDIRECTED EASILY. PATIENT REMOVED NASAL CANNULA AND STATED IT WOULDNT STAY IN SO SHE DIDNT WANT IT ANYMORE. SPO2 95-98% ON RA. PATIENT THEN HAD NO OTHER ACUTE EVENTS DURING THE SHIFT. COMPLAINTS OF BACK DISCOMFORT. PLACED HEATING PAD UNDER PATIENT BUT THEN PATIENT REMOVED IT. REPOSITIONED PATIENT AND PATIENT STATED IT HELPED RELIEVE BACK PAIN. WILL CONTINUE TO MONITOR.
[2018-10-04] MEDS ORDERED: ALBU2.5V5 INH (09:27)
[2018-10-04] MEDS ORDERED: ROBITUSSIN COU237 ML PO (09:27)
[2018-10-04] MEDS ORDERED: Vsl#3 Capsule1 EACH PO (09:28)
[2018-10-04] MEDS ORDERED: Nystop60 GM TOP (09:29)
--- NOTE | 2018-10-04 11:44 | NUR ---
DISCHARGE NOTE PT DISCHARGED VIA W/C WITH TRANSPORT VAN TO HOME ON HOSPICE ACCOMPANIED BY FAMILY AND IN NO ACUTE DISTRESS. FAMILY VERBALIZED UNDERSTANDING OF TAKING MEDICATIONS PRESCRIBED AND TO FOLLOW UP WITH PCP. ALL VALUABLES AND PERSONAL ITEMS SENT WITH FAMILY AT TIME OF DISCHARGE.
== END 2018-10-04 11:57 | disposition hospice, home (50) | DRG 682 ==
LOC: ER 03:30 → MEDS 06:06 → ENPENDDIS 10-04 08:24 → MEDS 10-04 11:57
PROVIDERS: Emergency Medicine; Internal Medicine; ADMIT Internal Medicine
PROC: 30233K1 Transfusion of Nonautologous Frozen Plasma into Peripheral Vein, Percutaneous Approach (ICD-10-PCS; principal; 2018-09-22)
DX: N17.9 Acute kidney failure, unspecified (principal); I50.33 Acute on chronic diastolic (congestive) heart failure; J96.01 Acute respiratory failure with hypoxia; I13.0 Hypertensive heart and chronic kidney disease with heart failure and stage 1 through stage 4 chronic kidney disease, or unspecified chronic kidney disease; A04.72 Enterocolitis due to Clostridium difficile, not specified as recurrent; R62.7 Adult failure to thrive; N18.3 Chronic kidney disease, stage 3 (moderate); H35.30 Unspecified macular degeneration; W18.30XA Fall on same level, unspecified, initial encounter; Y92.9 Unspecified place or not applicable; T45.511A Poisoning by anticoagulants, accidental (unintentional), initial encounter; I48.2 Chronic atrial fibrillation; Z86.73 Personal history of transient ischemic attack (TIA), and cerebral infarction without residual deficits; E87.6 Hypokalemia; E87.70 Fluid overload, unspecified; I27.20 Pulmonary hypertension, unspecified; E86.0 Dehydration; I95.9 Hypotension, unspecified
CPT/HCPCS: 36415; 36430; 71046; 73630; 80048; 80053; 81001; 83735; 83880; 84484; 85025; 85610; 86900; 86901; 87070; 87086; 87205; 87324; 87493; 92526; 92610; 93005; 93010; 93306; 94640; 94760; 96365; 96367; 97110; 97116; 97162; 97166; 97530; 97535; 99285-25; A9270; C9113; G0378; J0696; J2405; J3430; J3480; J7030; J7050; P9059